=== PATIENT | female | born 1950 | race African-American/Black ===

== ENCOUNTER 2018-07-28 17:11 | Emergency (ER) | payer MEDICARE, MEDICAID ==
--- NOTE | 2018-07-28 18:11 | CT ---
CT OF CERVICAL SPINE PERFORMED WITHOUT CONTRAST ENHANCEMENT: 07/28/18 HISTORY: Neck pain, status post fall. The vertebral bodies are normal in height. There are some degenerative osteophytes along the course o f the spine. Degenerative facet changes are also present. There is some mild left sided foraminal korina rowing at C4-5 and some very mild right sided foraminal narrowing at C5-6. No central canal stenosis. No CT evidence for fracture. IMPRESSION: No CT evidence of fracture of the cervical spine. POS: SCOTT
--- NOTE | 2018-07-28 18:28 | CT ---
CT OF BRAIN PERFORMED WITHOUT CONTRAST ENHANCEMENT: 07/28/18 HISTORY: Head trauma. Tripping and falling hitting back of head. Persistent headache. COMPARISON: 03/21/15 study. Ventricular and cisternal system is within normal limits. There is no signs of intracerebral hemorrha ge or extra-axial fluid collections. Mastoid air cells and visualized sinuses are clear. IMPRESSION: No acute intracranial abnormalities. POS: SCOTT
== END 2018-07-28 18:43 | disposition home or self-care (01) ==
LOC: NAV ERS 17:11
DX: S13.4XXA Sprain of ligaments of cervical spine, initial encounter (principal); G47.30 Sleep apnea, unspecified; E11.9 Type 2 diabetes mellitus without complications; I50.9 Heart failure, unspecified; J45.909 Unspecified asthma, uncomplicated; K21.9 Gastro-esophageal reflux disease without esophagitis; M19.90 Unspecified osteoarthritis, unspecified site; D64.9 Anemia, unspecified; F32.9 Major depressive disorder, single episode, unspecified; M85.80 Other specified disorders of bone density and structure, unspecified site; Z79.891 Long term (current) use of opiate analgesic; Z79.01 Long term (current) use of anticoagulants; Z79.899 Other long term (current) drug therapy; Z79.51 Long term (current) use of inhaled steroids; Z79.82 Long term (current) use of aspirin; W01.0XXA Fall on same level from slipping, tripping and stumbling without subsequent striking against object, initial encounter
CPT/HCPCS: 70450; 72125

== ENCOUNTER 2019-01-09 17:11 | Emergency (ER) | payer MEDICARE, OTHER ==
[2019-01-09] MEDS ORDERED: Ketorolac Tromethamine 30 MG/ML VIAL ONE (17:42)
--- NOTE | 2019-01-09 18:04 | RAD ---
ONE VIEW PELVIS: 01/09/19 HISTORY: Bumped hip on the corner of a chest. Pain. FINDINGS: Sacroiliac joints are patent and symmetric. Sacral ala are preserved. Bony pelvis is intact. Contour of both femoral heads are maintained and the hip joint spaces are symm etric. IMPRESSION: Unremarkable AP pelvic radiograph. POS: PPP
--- NOTE | 2019-01-09 18:06 | RAD ---
TWO VIEWS LEFT HIP: 01/09/19 HISTORY: Patient bumped hip on the corner of a chest. FINDINGS: Contour of the femoral head is maintained. No fracture. Hip joint spaces is preserved. The visualized bony pelvis is unremarkable. IMPRESSION: Unremarkable left hip two views. POS: PPP
[2019-01-09] MEDS ORDERED: Morphine 4 MG/ML VIAL ONE (18:39)
== END 2019-01-09 18:55 | disposition home or self-care (01) ==
LOC: NAV ERS 17:11
DX: M25.552 Pain in left hip (principal); I10 Essential (primary) hypertension; E11.9 Type 2 diabetes mellitus without complications; G47.30 Sleep apnea, unspecified; J45.909 Unspecified asthma, uncomplicated; J44.9 Chronic obstructive pulmonary disease, unspecified; K21.9 Gastro-esophageal reflux disease without esophagitis; F32.9 Major depressive disorder, single episode, unspecified; Z79.899 Other long term (current) drug therapy; Z79.01 Long term (current) use of anticoagulants; Z79.84 Long term (current) use of oral hypoglycemic drugs; Z79.82 Long term (current) use of aspirin
CPT/HCPCS: 72170; 96372; J1885; J2270

== ENCOUNTER 2019-04-09 18:37 | Emergency (ER) | payer MEDICARE, OTHER ==
[2019-04-09] MEDS ORDERED: Dexamethasone 20 MG/5 ML VIAL ONE (19:00)
== END 2019-04-09 19:20 | disposition home or self-care (01) ==
LOC: NAV ERS 18:37
DX: J02.9 Acute pharyngitis, unspecified (principal); I88.9 Nonspecific lymphadenitis, unspecified; E11.9 Type 2 diabetes mellitus without complications; G47.30 Sleep apnea, unspecified; J44.9 Chronic obstructive pulmonary disease, unspecified; I11.0 Hypertensive heart disease with heart failure; I50.9 Heart failure, unspecified; K21.9 Gastro-esophageal reflux disease without esophagitis; F32.9 Major depressive disorder, single episode, unspecified; F17.200 Nicotine dependence, unspecified, uncomplicated; Z79.899 Other long term (current) drug therapy; Z79.01 Long term (current) use of anticoagulants; Z79.84 Long term (current) use of oral hypoglycemic drugs; Z79.51 Long term (current) use of inhaled steroids
CPT/HCPCS: 96372; 99283; J1100